=== PATIENT | male | born 1945 | race Caucasian/White ===

== ENCOUNTER 2018-02-20 18:44 | Emergency (ER) | payer OTHER ==
[~2018-02-20] VITALS: Ht 170.2 cm; Wt 117.9 kg
[2018-02-20 18:53] VITALS: BP 190/80
[2018-02-20] MEDS ORDERED: TETANUS-DIPTH-ACEL PERTUSSIS 0.5ML SYRG IM ONE (22:15)
== END 2018-02-20 21:28 | disposition home or self-care (01) ==
LOC: ER 18:44
DX: S01.81XA Laceration without foreign body of other part of head, initial encounter (principal); I48.91 Unspecified atrial fibrillation; E78.5 Hyperlipidemia, unspecified; I10 Essential (primary) hypertension; W01.0XXA Fall on same level from slipping, tripping and stumbling without subsequent striking against object, initial encounter; Y93.89 Activity, other specified; Y99.8 Other external cause status; Y92.038 Other place in apartment as the place of occurrence of the external cause
CPT/HCPCS: 12013; 70450; 70486; 73130; 90715

== ENCOUNTER 2018-02-26 09:03 | Emergency (ER) | payer OTHER ==
[~2018-02-26] VITALS: Ht 175.3 cm; Wt 117.9 kg
[2018-02-26 09:05] VITALS: BP 107/77
== END 2018-02-26 10:40 | disposition home or self-care (01) ==
LOC: ER 09:03
DX: R04.0 Epistaxis (principal); I10 Essential (primary) hypertension; I48.91 Unspecified atrial fibrillation